=== PATIENT | male | born 1935 | race Caucasian/White ===

== ENCOUNTER → 2017-05-10 | Outpatient (CLI) | payer MEDICARE, OTHER | LOC: GMA 16:27 | PROVIDERS: ATTEND Nurse Practitioner Family | DX: R50.9 Fever, unspecified (principal) ==

== ENCOUNTER → 2019-06-11 | Outpatient (CLI) | payer MEDICARE, OTHER | LOC: GMAJ 20:08 | PROVIDERS: ATTEND Family Medicine | DX: M10.072 Idiopathic gout, left ankle and foot (principal) ==

== ENCOUNTER → 2020-08-05 | Outpatient (CLI) | payer OTHER ==
--- NOTE | 2020-08-07 08:32 | NM ---
EXAM DESCRIPTION: Bone Scan, 3Phase: Nuclear Medicine CLINICAL HISTORY: 84 years Male CELLULITIS OF RIGHT LOWER LIMB. Ulcers on the skin of both lateral ankles. Patient states no pain in the feet. COMPARISON: Report from CT scan right ankle April 2019. Radiographs and report left ankle May 2019. TECHNIQUE: Patient injected with 26.1 mCi of technetium 99M MDP IV. Immediate flow gamma camera images were obtained of the bilateral lower legs, ankles, and feet, anterior projection. "Blood pool" images were then obtained of the bilateral lower legs, ankles, and feet, also anterior projection. Delayed gamma camera images bilateral lower legs, ankles, and feet from anterior, posterior, oblique, and plantar projections, were obtained 3 hr after injection. FINDINGS: Phase 1-flow images: increase flow to the left great toe metacarpal phalangeal joint more than the right great toe, same joint. No increased flow to either ankle. Phase 2 pool images: Increased activity in the medial malleolus of the left ankle. Lateral soft tissue both ankles right greater than left, left mid tarsal bones, and left great toe medical tarsal phalangeal joint more than right. Phase 3 delayed images: Increased activity in the lateral soft tissues of both ankles, left medial malleolus/ankle mortise, mid tarsal bones left foot, and bilateral metatarsophalangeal joints of the great toes left more than right. Also medial and lateral knees bilaterally. IMPRESSION: Findings are consistent with cellulitis in the lateral soft tissues of the bilateral ankles with no evidence of osteomyelitis. Moderate arthritic changes in the medial ankle mortise/medial malleolus of the left ankle and left mid tarsal joints, and right great toe metatarsophalangeal joint. Activity in all 3 phases in the left great toe metatarsophalangeal joint could represent acute trauma, active inflammatory process, or osteomyelitis, depending on the clinical presentation. Based upon technologist observations, and patients history, active inflammatory process is most likely. Electronically signed by: Robert Vilchis MD 08/07/2020 8:30 AM CDT
== END ==
LOC: NM 08:29
PROVIDERS: ATTEND Family Medicine
DX: L03.115 Cellulitis of right lower limb (principal); M19.072 Primary osteoarthritis, left ankle and foot; M89.9 Disorder of bone, unspecified
CPT/HCPCS: 36415; 78315; 80048; 85025; 85651; 86140; A9503

== ENCOUNTER 2020-09-08 16:30 | Observation (INO) | payer OTHER ==
--- NOTE | 2020-09-08 16:49 | HP ---
SUPERVISING PHYSICIAN: Sam Jacome M.D. CHIEF COMPLAINT: COVID-19 HISTORY OF PRESENT ILLNESS: This is an 84 year-old male patient who lives in [place]. He sees Dr. Sierra. He was diagnosed with COVID several days ago. He called Dr. Sierra today and said he had increasing shortness of breath. He had a Telehealth visit with him. Home Health said that his O2 saturations were in the mid 80s and he was brought over to the hospital, and was placed in observation as a direct admission. After admission to the hospital, his vital signs showed a temperature of 96.8 with a heart rate of 68, blood pressure 177/67, O2 saturations were 95% on room air at rest. He did drop to 91% with exertion. His lab was done. CBC was basically unremarkable. Fibrinogen was 461 with a D- dimer of 393. Chemistry showed sodium 140, potassium 3.5, chloride 96, calcium 8.3, magnesium 2.1, BUN 14, creatinine 1.4. LD was 197, BNP was 742, CRP was 3.4. Blood cultures were drawn. CT of the chest showed: 1. Small layering pleural effusion. 2. Chronic obstructive pulmonary disease. 3. Minimal scarring or atelectasis present on CT findings typical of COVID pneumonia are identified. 4. Cholelithiasis. He was started on the routine COVID medications. PAST MEDICAL HISTORY: 1. Hyperlipidemia. 2. Hypertension. 3. Atrial fibrillation. 4. Carotid artery stenosis. 5. Congestive heart failure of unknown etiology. No current echo to review. 6. Coronary artery disease. 7. Peripheral vascular disease. 8. Benign prostatic hypertrophy. PAST SURGICAL HISTORY: 1. Coronary artery bypass graft. 2. Bilateral cataract removal. 3. Carotid artery stent. 4. Cardiac valve replacement of the aortic valve. 5. Carotid endarterectomy. 6. Carotid stent. 7. Right lower extremity stent. 8. Intraventricular conduction defect. CURRENT MEDICATIONS: 1. Pentoxifylline. 2. Eliquis. 3. Aldactone. 4. Avapro. 5. Amiodarone. 6. Protonix. 7. Metoprolol. 8. Atorvastatin. 9. Colchicine. 10. Furosemide. ALLERGIES: NO KNOWN DRUG ALLERGIES. SOCIAL HISTORY: He lives in [place]. He has a past history of cigarette smoking but he quit in 1998. He denies any ETOH or illicit drug use. REVIEW OF SYSTEMS: GENERAL: Positive for fatigue. Negative for fever or weight changes. HEENT: Negative for sinus symptoms, ear pain, vision changes or sore throat. RESPIRATORY: Positive for coughing and shortness of breath. Negative for wheezing. CARDIAC: Negative for chest pain, palpitations or tachycardia. GASTROINTESTINAL: Negative for nausea, vomiting, diarrhea or constipation. GENITOURINARY: Negative for hematuria, dysuria or polyuria. SKIN: Negative for lesions or rashes. NEUROLOGIC: Negative for headache, dizziness or seizures. PHYSICAL EXAMINATION: VITAL SIGNS: Temperature 96.8, heart rate 68, blood pressure 177/67, respiratory rate 18, O2 saturation 95%. GENERAL: This is an 84 year-old male patient lying in his hospital bed. He is in no acute distress. HEENT: Normocephalic, atraumatic. Pupils are equal and reactive. Oropharynx is clear. NECK: Supple. RESPIRATORY: Slightly diminished breath sounds, but otherwise clear to auscultation. CARDIOVASCULAR: Regular rate and rhythm. GASTROINTESTINAL: Abdomen is soft, nondistended, nontender. Bowel sounds are positive. NEUROLOGIC: Awake and alert. LABORATORY: Labs and films are as per the History of Present Illness. ASSESSMENT: 1. COVID-19 pneumonitis. 2. Hypertension. 3. Hyperlipidemia. 4. Congestive heart failure of unknown etiology. No echocardiogram to review. 5. Coronary artery disease. 6. Peripheral vascular disease. 7. Renal insufficiency. PLAN: The patient has been placed in observation. We will begin the COVID guidelines, including Remdesivir, azithromycin and Ceftriaxone. I have given him some Decadron. I will restart his home medicines as soon as they are verified. He will have Align and Mucinex. He will continue his Eliquis which will be sufficient for DVT prophylaxis. He may need an extra dose of Lasix as his chest x-ray shows increased fluid, but will review his chest x-ray in the morning. Will have aggressive pulmonary hygiene, including scheduled and p.r.n. Albuterol in [facility]. #[id number]
[2020-09-08] MEDS ORDERED: ACETAMINOPHEN 325 MG TAB PO PRN (17:10)
[2020-09-08] MEDS ORDERED: ONDANSETRON INJ 4 MG/2 ML VIAL IV PRN (17:10)
[2020-09-08] MEDS ORDERED: SODIUM CHLORIDE 0.9% (FLUSH) 10 ML SYG IV PRN (17:10)
[2020-09-08] MEDS ORDERED: DEXAMETHASONE INJ 10 MG/ML VIAL IV ONE (17:18)
[2020-09-08] MEDS ORDERED: REMDESIVIR 200 MG in SODIUM CHLORIDE 0.9% 250ML 250 ML IVPB ONE (17:18)
[2020-09-08] MEDS ORDERED: ALBUTEROL INHALER 64 PUFF/8GM INH PRN (17:19)
[2020-09-08] MEDS ORDERED: cefTRIAXone SODIUM 1 GM in SODIUM CHL 0.9% 50ML MIN-BAG+ 50 ML IVPB ONE (17:30)
[2020-09-08] MEDS ORDERED: IV SET AND CAP CHANGE INJ INJ SCH (17:30)
--- NOTE | 2020-09-08 18:54 | CT ---
EXAM: CT Chest Without Intravenous Contrast CLINICAL HISTORY: covid TECHNIQUE: Axial computed tomography images of the chest without intravenous contrast. Sagittal and coronal reformatted images were created and reviewed. This CT exam was performed using one or more of the following dose reduction techniques: automated exposure control, adjustment of the mA and/or kV according to patient size, and/or use of iterative reconstruction technique. COMPARISON: No relevant prior studies available. FINDINGS: Limitations: None. Lungs: Centrilobular emphysematous changes present. There is no dominant bulla or bleb. There is mild linear atelectasis or scarring in both lung bases. Pleural space: Small layering bilateral pleural effusions noted. Heart: Cardiomegaly. Coronary bypass changes present. Cardiac pacing device noted with lead in the right ventricle. Mediastinum: Small to moderate sliding hiatal hernia noted. Thyroid: No abnormality noted. Bones/joints: Degenerative changes present in the spine. No acute osseous abnormality noted. Soft tissues: Visualized portions appear normal. Vasculature: Atherosclerosis of the aorta and branches. No aneurysm. Lymph nodes: There is a mildly enlarged peritracheal lymph node likely reactive. Gallbladder and bile ducts: Cholelithiasis. Upper abdomen: Visualized portions appear normal. IMPRESSION: 1. Small layering pleural effusions are present. 2. COPD. Minimal scarring or atelectasis present. No CT findings typical of covid pneumonia are identified. 3. Cholelithiasis. Electronically signed by: Bev Corcoran MD 09/08/2020 6:53 PM CHIEF CLERK
[2020-09-08] MEDS ORDERED: SODIUM CHLORIDE 0.9% 250ML 500 ML ONE (19:20)
[2020-09-08] MEDS ORDERED: AZITHROMYCIN IV 500 MG VIAL IVPB ONE (19:20)
[2020-09-08] MEDS ORDERED: cefTRIAXone SODIUM 1 GM VIAL ONE (19:21)
[2020-09-08] MEDS ORDERED: REMDESIVIR IV 100 MG VIAL ONE (19:21)
[2020-09-08] MEDS ORDERED: SODIUM CHL 0.9% 50ML MIN-BAG+ 50 ML IVPB ONE (19:21)
[2020-09-08] MEDS ORDERED: AZITHROMYCIN IV 500 MG in SODIUM CHLORIDE 0.9% 250ML 250 ML IVPB ONE (20:00)
[2020-09-08] MEDS ORDERED: traMADol HCL 50 MG TAB PO PRN (20:17)
[2020-09-08] MEDS ORDERED: ATORVASTATIN 20 MG TAB PO ONE (20:55)
[2020-09-08] MEDS: ALBUTEROL INHALER 64 PUFF/8GM INH SCH (21:00)
[2020-09-08] MEDS ORDERED: NON-FORMULARY MEDICATION 1 EA MIS (Atorvastatin Calcium [Lipitor] 40 MG) PO SCH (21:00)
[2020-09-08] MEDS: PENTOXIFYLLINE 400 MG TAB PO SCH (21:20)
[2020-09-08] MEDS: guaiFENesin ER TAB 600 MG TAB PO SCH (21:20)
[2020-09-08] MEDS: APIXABAN 5 MG TAB PO SCH (21:21)
[2020-09-08] MEDS: SODIUM CHLORIDE 0.9% (FLUSH) 10 ML SYG IV SCH (21:23)
[2020-09-09] MEDS ORDERED: PANTOPRAZOLE SODIUM IV 40 MG VIAL IV SCH (06:30)
--- NOTE | 2020-09-09 07:10 | RAD ---
EXAM: Chest,1 View HISTORY: covid COMPARISON: CT chest 09/08/2020 TECHNIQUE: Chest 1 View AP FINDINGS: Marked aortic arch calcification. Heart size within normal limits. No focal consolidation. Small left pleural effusion. No pneumothorax. Diffuse decreased bone density. Sternotomy and mediastinal surgical clips suggest CABG. AICD with pulse generator overlying left chest wall and lead tips overlying right ventricle. IMPRESSION: 1. Small left pleural effusion. 2. CABG. 3. AICD Electronically signed by: Adi Lemos MD 09/09/2020 7:08 AM [facility]
[2020-09-09] MEDS ORDERED: AZITHROMYCIN IV 500 MG VIAL IVPB ONE (07:42)
[2020-09-09] MEDS ORDERED: METOPROLOL TARTRATE 50 MG TAB ONE (07:43)
[2020-09-09] MEDS ORDERED: cefTRIAXone SODIUM 1 GM VIAL ONE (07:43)
[2020-09-09] MEDS ORDERED: SODIUM CHLORIDE 0.9% 250ML 250 ML ONE (07:43)
[2020-09-09] MEDS ORDERED: SODIUM CHL 0.9% 50ML MIN-BAG+ 50 ML IVPB ONE (07:43)
[2020-09-09] MEDS ORDERED: POTASSIUM CHLORIDE 20 MEQ TAB PO ONE (08:48)
[2020-09-09] MEDS ORDERED: cefTRIAXone SODIUM 1 GM in SODIUM CHL 0.9% 50ML MIN-BAG+ 50 ML IVPB SCH (09:00)
[2020-09-09] MEDS ORDERED: DEXAMETHASONE INJ 10 MG/ML VIAL IV SCH (09:00)
[2020-09-09] MEDS ORDERED: SPIRONOLACTONE 25 MG TAB PO SCH (09:00)
[2020-09-09] MEDS ORDERED: FUROSEMIDE 40 MG TAB PO SCH (09:00)
[2020-09-09] MEDS ORDERED: BIFIDOBACTERIUM INFANTIS 4 MG CAP PO SCH (09:00)
[2020-09-09] MEDS ORDERED: METOPROLOL SUCCINATE XL 50 MG TAB PO SCH (09:00)
[2020-09-09] MEDS ORDERED: AZITHROMYCIN IV 500 MG in SODIUM CHLORIDE 0.9% 250ML 250 ML IVPB SCH (10:00)
[2020-09-09] MEDS ORDERED: POTASSIUM CHLORIDE 20 MEQ TAB ONE (10:51)
[2020-09-09] MEDS: PENTOXIFYLLINE 400 MG TAB PO SCH ×2 (11:09→15:12)
[2020-09-09] MEDS: guaiFENesin ER TAB 600 MG TAB PO SCH (11:09)
[2020-09-09] MEDS: APIXABAN 5 MG TAB PO SCH (11:09)
[2020-09-09] MEDS: SODIUM CHLORIDE 0.9% (FLUSH) 10 ML SYG IV SCH (11:11)
[2020-09-09] MEDS: ALBUTEROL INHALER 64 PUFF/8GM INH SCH ×2 (11:30→12:17)
[2020-09-09] MEDS ORDERED: REMDESIVIR 100 MG in SODIUM CHLORIDE 0.9% 250ML 250 ML IVPB SCH (12:00)
[2020-09-09 12:43] VITALS: O2SAT 99
[2020-09-09 15:25] VITALS: BP 129/70; TEMP 97.2
[2020-09-09] MEDS ORDERED: ATORVASTATIN 20 MG TAB PO SCH (21:00)
--- NOTE | 2020-09-10 07:54 | DS ---
SUPERVISING PHYSICIAN: Luigi Jacome MD DISCHARGE DIAGNOSIS: 1. COVID-19 pneumonitis. 2. Hypertension. 3. Hyperlipidemia. 4. Congestive heart failure of unknown etiology. No echocardiogram to review. 5. Coronary artery disease. 6. Peripheral vascular disease. 7. Renal insufficiency. HISTORY OF PRESENT ILLNESS: This is an 84-year-old male patient who lives in [place]. He sees Dr. Sierra. He was diagnosed with COVID several days ago. He called Dr. Sierra and complained of increasing shortness of breath. He had a Telehealth visit with him. Home Health said that his O2 saturations were in the mid 80s and he was brought over to the hospital. He was directly admitted and was placed in observation in the hospital. His vital signs showed a temperature of 96.8 with a heart rate of 68, blood pressure 177/67, O2 saturations were 95% on room air at rest. He did drop to 91% with exertion. His lab was done and COVID guidelines were initiated. HOSPITAL COURSE: He was given Remdesivir, azithromycin and ceftriaxone as well as Decadron. His Eliquis was continued for DVT prophylaxis. He also received Align, Mucinex and a proton pump inhibitor for ulcer prophylaxis. His vital signs remained stable. He did not need any oxygen. Today, he will be discharged home in stable condition. LABORATORY: WBC on admission was 6.5 and 3.8 this morning. Hemoglobin 14.6, hematocrit 43.2. Today, are 12.7 and 38.1. Fibrinogen was 461 and 449. D- dimer was normal at 241. Sodium 140, potassium 3.5. He did receive some potassium supplementation. Calcium low at 7.7. The remainder of his electrolytes were within normal limits. Ferritin 26.9. Total bilirubin on admission was 1.1 and today is 0.8. Liver function tests were within normal limits. LD 197 yesterday and 158 today. Troponin 0.03, C-reactive protein 3.4 on admission and 4.5 today. BNP 742. Urinalysis was unremarkable. MICROBIOLOGY: Preliminary blood cultures showed no growth. RADIOLOGY: Chest CT shows 1) Small layering pleural effusions present. 2) Chronic obstructive pulmonary disease, minimal scarring or atelectasis present. No CT findings typical of COVID pneumonia are identified. 3) Cholelithiasis. His chest x-ray showed 1) Small left pleural effusion. 2) CABG. 3) AICD. DISCHARGE PLAN: The patient will be discharged home in stable condition. He is to resume his previous diet and increase activity as tolerated. He is to continue with his home medications. In addition to his home medications, he is also to continue on Align and Mucinex. I have also given him 7 days of cefdinir, 8 days of Decadron and 4 days of azithromycin as well as albuterol inhaler. He is to followup with Dr. Sierra within the next 1 to 2 weeks. He is to return to the hospital or followup with Dr. Sierra for any problems or complications. DISCHARGE MEDICATIONS: 1. Lipitor. 2. Eliquis. 3. Tramadol. 4. Lasix. 5. Spironolactone. 6. Colchicine. 7. Trental. 8. Metoprolol. 9. Align. 10. Cefdinir. 11. Decadron. 12. Albuterol inhaler. 13. Azithromycin. #[id number] [facility]
== END 2020-09-09 12:05 | disposition home health service (06) ==
LOC: MS 16:30
PROVIDERS: ADMIT Nurse Practitioner Acute Care; ATTEND Nurse Practitioner Acute Care
DX: U07.1 COVID-19 (principal); J12.89 Other viral pneumonia; I11.0 Hypertensive heart disease with heart failure; E78.5 Hyperlipidemia, unspecified; I50.9 Heart failure, unspecified; I25.10 Atherosclerotic heart disease of native coronary artery without angina pectoris; I73.9 Peripheral vascular disease, unspecified; N28.9 Disorder of kidney and ureter, unspecified; N40.0 Benign prostatic hyperplasia without lower urinary tract symptoms; J44.9 Chronic obstructive pulmonary disease, unspecified; K80.20 Calculus of gallbladder without cholecystitis without obstruction; Z79.01 Long term (current) use of anticoagulants; Z79.899 Other long term (current) drug therapy; Z95.1 Presence of aortocoronary bypass graft; Z95.810 Presence of automatic (implantable) cardiac defibrillator; Z95.2 Presence of prosthetic heart valve; Z95.828 Presence of other vascular implants and grafts; Z87.891 Personal history of nicotine dependence

== ENCOUNTER → 2020-11-13 | Outpatient (CLI) | payer MEDICARE ==
--- NOTE | 2020-11-13 15:12 | CT ---
EXAM DESCRIPTION: CTA Chest CLINICAL HISTORY: 85 years Male, DYSPNEA TECHNIQUE: Volumetric CT angiographic data acquisition of the thorax was obtained. Standard axial and CT angiographic MIP sagittal and coronal images are submitted. This exam was performed according to our departmental dose-optimization program, which includes automated exposure control, adjustment of the mA and/or kV according to patient size and/or use of iterative reconstruction technique. COMPARISON: 09/08/2020 FINDINGS: Left chest wall pacemaker. The thyroid gland is unremarkable. Median sternotomy. No axillary adenopathy. Atherosclerotic plaque in the thoracic aorta. Coronary artery calcifications. No pericardial effusion. No evidence of acute process in the visualized upper abdomen. Cholelithiasis. Small hiatal hernia. No mediastinal adenopathy. Small bilateral pleural effusions. No pneumothorax. Similar emphysema. There are multifocal bilateral nodular and groundglass airspace opacities. No acute or suspicious osseous abnormality. Scattered degenerative changes present. IMPRESSION: 1. No pulmonary embolus. 2. Multifocal pneumonia. Consider viral etiologies. 3. Small bilateral pleural effusions. Electronically signed by: Shankar Kim MD 11/13/2020 3:10 PM [facility]
== END ==
LOC: CT 11:16
PROVIDERS: ATTEND Family Medicine
DX: J18.9 Pneumonia, unspecified organism (principal); J90 Pleural effusion, not elsewhere classified